=== PATIENT | female | born 1995 | race Caucasian/White ===

== ENCOUNTER 2020-04-17 18:11 | Emergency (ER) | payer OTHER ==
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
--- NOTE | 2020-04-17 19:44 | XR ---
EXAMINATION TYPE: XR chest 2V DATE OF EXAM: 04/17/2020 COMPARISON: NONE HISTORY: Pain TECHNIQUE: 2 views FINDINGS: Heart and mediastinum are normal. Lungs are clear. Diaphragm is normal. Bony thorax appears normal. There is no evidence of pleural effusion or pneumothorax. IMPRESSION: Normal chest.
--- NOTE | 2020-04-17 19:45 | XR ---
EXAMINATION TYPE: XR Hip Complete RT DATE OF EXAM: 04/17/2020 COMPARISON: NONE HISTORY: Hip pain TECHNIQUE: 2 views FINDINGS: I see no fracture nor dislocation. Hip joint space is normal. There is no sign of hip dyspl jayna. Sacroiliac joint is intact. IMPRESSION: Negative right hip exam.
--- NOTE | 2020-04-17 19:46 | XR ---
EXAMINATION TYPE: XR lumbar spine 2 or 3V DATE OF EXAM: 04/17/2020 COMPARISON: NONE HISTORY: Pain TECHNIQUE: 3 views FINDINGS: I see no fracture nor dislocation. Joint spaces are normal. Sacroiliac joints are intact. P osterior elements appear normal. IMPRESSION: Normal lumbar spine exam.
[2020-04-17] MEDS ORDERED: CYCLOBENZAPRINE 10MG STARTER 3 TAB BTL PO STA (20:27)
[2020-04-17 20:43] VITALS: BP 121/59; PULSE 51; RESP 18; TEMP 98
== END 2020-04-17 20:43 | disposition home or self-care (01) ==
LOC: EC 18:11
DX: S13.4XXA Sprain of ligaments of cervical spine, initial encounter (principal); M54.5 Low back pain; V43.52XA Car driver injured in collision with other type car in traffic accident, initial encounter; Y92.410 Unspecified street and highway as the place of occurrence of the external cause
CPT/HCPCS: 70450; 71046; 72100; 72125; 73502; 99284